=== PATIENT | female | born 1960 | race Caucasian/White ===

== ENCOUNTER → 2016-11-08 | Outpatient (CLI) | payer BC ==
[~2016-11-08] VITALS: Ht 167.6 cm; Wt 81.6 kg
[~2016-11-08] MED LIST: APAP500 PO; BIAXIN 500 MG500 M1 PO; CELEBREX 200 M200 MG PO; CLARITIN10 MG PO; COLACE100 MG PO; CYMBALTA30 MG PO; CYMBALTA60 MG PO; FLONASE 0.05%50 MCG NS; GABAPENTIN 100100 MG PO; HORMONE COMPOUND BUCCAL; HYDROXYZINE HCL25 M2 PO; IMITREX100 MG PO; LEVAQUIN 500 M500 M2 PO; LEVOTHYROXIN0.088 MG PO; MIRALAX17 GM PO; NUCYNTA75 MG PO; OMEPRAZOLE 20 M20 M1 PO; ORPHENADRINE C100 M2 PO; ORTHO-NOVUM1 EAC2 PO; PERCOCET 10-321 EACH PO; PERCOCET PO; PHENTERMINE H37.5 M1 PO; SENOKOT-S1 TA1 PO; TOPAMAX50 MG PO; TRAMADOL 50 MG50 MG PO; TYLENOL EXTRA500 MG PO; VALIUM5 MG PO; VITAMIN B-121000 MC1 PO; VITAMIN C 250250 MG PO; XARELTO10 MG PO; ZIPSOR25 MG PO; ZYRTEC 10 MG TA10 MG PO; ZYRTEC10 MG PO
[2016-11-08 09:51] VITALS: BP 131/71
[2016-11-08 11:00] VITALS: BP 131/71
== END | disposition home or self-care (01) ==
LOC: CAT 09:21
DX: M71.38 Other bursal cyst, other site (principal); M47.896 Other spondylosis, lumbar region; M54.16 Radiculopathy, lumbar region; Z98.890 Other specified postprocedural states